=== PATIENT | female | born 1995 | race African-American/Black ===

== ENCOUNTER 2019-01-02 22:54 | Emergency (ER) | payer BC | END 2019-01-02 23:25 | disposition left against medical advice (07) | LOC: ER 22:54 | DX: R06.00 Dyspnea, unspecified (principal); Z53.21 Procedure and treatment not carried out due to patient leaving prior to being seen by health care provider ==

== ENCOUNTER 2023-12-01 08:08 | Emergency (ER) | payer BC, MEDICAID ==
[~2023-12-01] VITALS: Ht 154.9 cm; Wt 61.1 kg
[2023-12-01 08:51] LABS: Urine Bacteria None Seen /hpf (None Seen)
[2023-12-01 09:05] LABS: Urine Blood 3+ /uL (Negative); Urine Clarity Clear (Clear); Urine Color Yellow (Yellow); Urine Mucus FEW (None Seen); Urine Protein, UAD Negative (Negative); Urine Specific Gravity 1.023 (1.001-1.035); Urine Urobilinogen Normal (Negative); Urine WBC 1 /hpf (0 - 5); Urine pH 5.5 (5.0-9.0)
[2023-12-01 09:12] LABS: Basophils # (auto) 0 10 ^3/uL (0-0.2); Basophils % (auto) 0.2 % (0.0-2.0); Eosinophils # (auto) 0.1 10 ^3/uL (0-0.8); Eosinophils % (auto) 1.8 % (0.0-7.0); Hematocrit 36.3 % (36.0-46.0); Hemoglobin 12.4 g/dL (12.2-16.2); Lymphocytes # (auto) 1.2 10 ^3/uL (0.4-5.4); Lymphocytes % (auto) 29.2 % (10.0-50.0); Mean Corpuscular Hemoglobin 29.6 pg (28.0-32.0); Mean Corpuscular Hgb Conc. 34.3 g/dL (32.0-36.0); Mean Corpuscular Volume 86.2 fL (80.0-100.0); Monocytes # (auto) 0.3 10 ^3/uL (0-1.3); Monocytes % (auto) 8.3 % (0.0-12.0); Neutrophils # (auto) 2.5 10 ^3/uL (1.6-8.6); Neutrophils % (auto) 60.5 % (37.0-80.0); Red Blood Cells 4.21 10^6/uL (4.0-5.20); Red Cell Distribution Width 14.3 % (11.8-14.3); White Blood Cell 4.1 10^3/uL (4.4-10.8)
[2023-12-01 09:16] LABS: Alanine Aminotransferase 47 U/L (7-40); Albumin 4.7 g/dL (3.2-4.8); Alkaline Phosphatase 57 U/L (46-116); Anion Gap 6 (5-15); Aspartate Aminotransferase 25 U/L (13-40); BUN/Creatinine Ratio 10.6 (10.0-20.0); Blood Urea Nitrogen 9 mg/dL (9-23); Calcium 9.6 mg/dL (8.5-10.1); Carbon Dioxide 23 mmol/L (20-30); Chloride 107 mmol/L (98-107); Glucose 91 mg/dL (74-106); Potassium 3.8 mmol/L (3.5-5.1); Sodium 136 mmol/L (136-145)
[2023-12-01 09:17] LABS: Bilirubin, Total 0.4 mg/dL (0.2-1.0); Total Protein 7.2 g/dL (5.7-8.2)
[2023-12-01 12:00] VITALS: BP 116/58; PULSE 100; RESP 20; TEMP 98.4; O2SAT 100
== END 2023-12-01 12:02 | disposition home or self-care (01) ==
LOC: ER 08:08
DX: O20.0 Threatened abortion (principal); F12.10 Cannabis abuse, uncomplicated; Z3A.01 Less than 8 weeks gestation of pregnancy
CPT/HCPCS: 36415; 76801; 80053; 81001; 84702; 85025

== ENCOUNTER 2024-06-02 04:28 | Emergency (ER) | payer BC ==
[~2024-06-02] VITALS: Ht 152.4 cm; Wt 70.7 kg
--- NOTE | 2024-06-02 04:41 | ED.PDOC ---
History of Present Illness HPI Comments A 28 year old female presents to the ED with a chief complaint of fever onset 1 week. Patient states she has been experiencing fever, chills for the past week. Patient is currently 33 weeks , P:1. Patient denies any past medical history. No other symptoms or modifying factors present at this time. Chief Complaint: Flu like Time Seen by MD: 04:35 Primary Care Provider: CARMITA Bateman Notes: Medications, Allergies Allergies: Coded Allergies: NO KNOWN ALLERGIES (Unverified , 02/08/19) Information Source: Patient Mode of Arrival: Ambulatory Severity: Moderate Timing: Weeks Duration: Since onset Prehospital treatment: None Past Medical History PAST MEDICAL HISTORY: Denies Surgical History: Denies all surgeries PASTRY WRAPPER History: No Pertinent PASTRY WRAPPER History Family History Family History: Reviewed,noncontributory to illness, Family hx of HTN Social History Smoker: Non-Smoker Alcohol: Occasionally Drugs: Marijuana Lives In: Home Constitutional: reports: chills, fever; denies: diaphoresis, fatigue, malaise, sweats, weakness, others EENTM: denies: blurred vision, double vision, ear bleeding, ear discharge, ear drainage, ear pain, ear ringing, eye pain, eye redness, hearing loss, mouth pain, mouth swelling, nasal discharge, nose bleeding, nose congestion, nose pain, photophobia, tearing, throat pain, throat swelling, voice changes, others Respiratory: denies: cough, hemoptysis, orthopnea, SOB at rest, shortness of breath, SOB with excertion, stridor, wheezing, others Cardiovascular: denies: chest pain, dizzy spells, diaphoresis, Dyspnea on exertion, edema, irregular heart beat, left arm pain, lightheadedness, palpita tions, PND, syncope, others Gastrointestinal: denies: abdomen distended, abdominal pain, blood streaked manjinder wels, constipated, diarrhea, dysphagia, difficulty swallowing, hematemesis, melena, nausea, poor appetite, poor fluid intake, rectal bleeding, rectal pain, vomiting, others Genitourinary: denies: abnormal vagina bleeding, burning, dyspareunia, dysuria, flank pain, frequency, hematuria, incontinence, pain, , vagina discharge, urgency, others Neurological: denies: dizziness, fainting, headache, left sided numbness, left sided weakness, numbness, paresthesia, pre-existing deficit, right sided numbness, right sided weakness, seizure, speech problems, tingling, tremors, weakness, others Musculoskeletal: denies: back pain, gout, joint pain, joint swelling, muscle pain, muscle stiffness, neck pain, others Integumetry: denies: bruises, change in color, change in hair/nails, dryness, laceration, lesions, lumps, rash, wounds, others Allergic/Immunocompromised: denies: Difficulty Healing, Frequent Infections, Hives, Itching, others Hematologic/Lymphatic: denies: anemia, blood clots, easy bleeding, easy bruis ing, swollen glands, others Endocrine: denies: excessive hunger, excessive sweating, excessive thirst, exc essive urination, flushing, intolerance to cold, intolerance to heat, unexplained weight gain, unexplained weight loss, others Psychiatric: denies: anxiety, bipolar disorder, depression, hopeless, panic disorder, schizophrenia, sleepless, suicidal, others All Other Systems: Reviewed and Negative Physical Exam General Appearance: No Apparent Distress, Normal HEENT: Normal ENT Inspection, Pharynx Normal, TMs Normal Neck: Full Range of Motion, Non-Tender, Normal, Normal Inspection Respiratory: Chest Non-Tender, Lungs Clear, No Accessory Muscle Use, No Respiratory Distress, Normal Breath Sounds Cardiovascular: No Edema, No JVD, No Murmur, No Gallop, Normal Peripheral Pulses, Tachycardia Breast Exam: Deferred Gastrointestinal: No Organomegaly, Non Tender, No Pulsatile Mass, Normal Bowel Sounds, Soft Genitalia: Deferred Pelvic: Deferred Rectal: Deferred Extremities: No calf tenderness, Normal capillary refill, Normal inspection, Normal range of motion, Non-tender, No pedal edema Musculoskeletal : Apperance: Normal Neurologic: Alert, yarn winder II-XII nml as Tested, No Motor Deficits, Normal Affect, Normal Mood, No Sensory Deficits Cerebellar Function: Normal Reflexes: Normal Skin: Dry, Normal Color, Warm Lymphatic: No Adenopathy Was a procedure done? Was a procedure done?: No Differential Dx Considerations may include: Influenza, viral syndrome X-Ray, Labs, Meds, VS Vital Signs Date Time Temp Pulse Resp B/P (MAP) Pulse Ox O2 Delivery O2 Flow Rate FiO2 06/02/24 04:50 16 98 Room Air* 0 21 06/02/24 04:40 99.4 140 16 93/60 (71) 98 Lab Test 06/02/24 04:50 06/02/24 04:48 Range/Units White Blood Count 4.2 L 4.4-10.8 10^3/uL Red Blood Count 3.75 L 4.0-5.20 10^6/uL Hemoglobin 10.5 L 12.2-16.2 g/dL Hematocrit 32.2 L 36.0-46.0 % Mean Corpuscular Volume 85.8 80.0-100.0 fL Mean Corpuscular Hemoglobin 28.0 28.0-32.0 pg Mean Corpuscular Hemoglobin Concent 32.7 32.0-36.0 g/dL Red Cell Distribution Width 14.3 11.8-14.3 % Platelet Count 241 140-450 10^3/uL Mean Platelet Volume 7.9 6.9-10.8 fL Neutrophils (%) (Auto) 80.3 H 37.0-80.0 % Lymphocytes (%) (Auto) 9.1 L 10.0-50.0 % Monocytes (%) (Auto) 10.0 0.0-12.0 % Eosinophils (%) (Auto) 0.4 0.0-7.0 % Basophils (%) (Auto) 0.2 0.0-2.0 % Neutrophils # (Auto) 3.4 1.6-8.6 10 ^3/uL Lymphocytes # (Auto) 0.4 0.4-5.4 10 ^3/uL Monocytes # (Auto) 0.4 0-1.3 10 ^3/uL Eosinophils # (Auto) 0 0-0.8 10 ^3/uL Basophils # (Auto) 0 0-0.2 10 ^3/uL Nucleated Red Blood Cells 0.1 % Sodium Level 136 136-145 mmol/L Potassium Level 3.7 3.5-5.1 mmol/L Chloride Level 106 98-107 mmol/L Carbon Dioxide Level 19 L 20-31 mmol/L Anion Gap 11 5-15 Blood Urea Nitrogen 8 L 9-23 mg/dL Creatinine 0.93 0.550-1.02 mg/dL Glomerular Filtration Rate Calc 85 >90 mL/min BUN/Creatinine Ratio 8.6 L 10.0-20.0 Serum Glucose 97 74-106 mg/dL Calcium Level 8.9 8.7-10.4 mg/dL Influenza Type A Antigen Positive Negative Influenza Type B Antigen Negative Negative SARS-CoV-2 Antigen (Rapid) Negative NEGATIVE Current Medications Medications (Trade) Dose Ordered Sig/Penny Route Start Time Stop Time Status Last Admin Sodium Chloride 2,000 ml @ 1,000 mls/hr Q2H ONCE IV 06/02/24 04:45 06/02/24 06:44 06/02/24 04:53 Ondansetron HCl (Zofran) 4 mg ONCE ONCE IV 06/02/24 04:45 06/02/24 04:46 DC 06/02/24 05:20 Time of 1ST Reevaluation: 05:05 Reevaluation 1ST: Unchanged Patient Education/Counseling: Diagnosis, Treatment, Prognosis Family Education/Counseling: No Family Present Additional Information I reviewed the following notes from patient's past medical encounters: The following tests were ordered, and results were reviewed by me: COVID, RAPID INFLUENZA A&B, CBC, BMP I discussed treatment and results with medical personnel and: patient Departure 1 Departure Time of Disposition: 06:03 (Patient is flu a. Her vitals are normalizing after receiving fluids. We will discharge patient home with outpatient follow up ) Impression: Primary Impression: Influenza A Additional Impression: Viral syndrome Disposition: 01 HOME / SELF CARE / HOMELESS Condition: Stable Additional Instructions: You have influenza a. It is important to stay well rested and well hydrated. You can take Tylenol as needed for pain and fever. For a sore throat you can drink warm tea with honey. You were prescribed tamilfu. Please take as directed. He should follow up with your regular doctor within 1 week to ensure you are doing better. If your symptoms worsen or you have any other concerns please return to the emergency room. e-Prescriptions Oseltamivir Phosphate (Tamiflu) 75 Mg Cap 75 MG PO BID for 5 Days, #10 CAP Prov: CHARLES MALLOY MD 06/02/24 Discharged With: Self Critical Care Note Critical Care Time?: No Stability Stability form required: No I personally scribed for CHARLES MALLOY MD ([email or web address]) on 06/02/24 at 04:41. Electronically submitted by Gabrielle Emerson ([email or web address]). I personally scribed for CHARLES MALLOY MD ([email or web address]) on 06/02/24 at 04:42. Electronically submitted by Gabrielle Emerson ([email or web address]). CHARLES MALLOY MD Jun 02, 2024 04:41
[2024-06-02] MEDS: ACETAMINOPHEN 325 MG TAB PO ONE (04:45)
[2024-06-02] MEDS: ONDANSETRON HCL 4 MG/2 ML VIAL IV ONE (04:50)
[2024-06-02] MEDS: SODIUM CHLORIDE 0.9% 2,000 ML IV ONE (04:53)
[2024-06-02 05:03] LABS: Basophils # (auto) 0 10 ^3/uL (0-0.2); Basophils % (auto) 0.2 % (0.0-2.0); Eosinophils # (auto) 0 10 ^3/uL (0-0.8); Eosinophils % (auto) 0.4 % (0.0-7.0); Hematocrit 32.2 % (36.0-46.0); Hemoglobin 10.5 g/dL (12.2-16.2); Lymphocytes # (auto) 0.4 10 ^3/uL (0.4-5.4); Lymphocytes % (auto) 9.1 % (10.0-50.0); Mean Corpuscular Hgb Conc. 32.7 g/dL (32.0-36.0); Mean Corpuscular Volume 85.8 fL (80.0-100.0); Monocytes # (auto) 0.4 10 ^3/uL (0-1.3); Neutrophils # (auto) 3.4 10 ^3/uL (1.6-8.6); Neutrophils % (auto) 80.3 % (37.0-80.0); Nucleated Red Blood Cells % 0.1 %; Platelet Count (auto) 241 10^3/uL (140-450); Red Blood Cells 3.75 10^6/uL (4.0-5.20); Red Cell Distribution Width 14.3 % (11.8-14.3); White Blood Cell 4.2 10^3/uL (4.4-10.8)
[2024-06-02 05:12] LABS: Anion Gap 11 (5-15); Chloride 106 mmol/L (98-107); Potassium 3.7 mmol/L (3.5-5.1); Sodium 136 mmol/L (136-145)
[2024-06-02 05:13] LABS: Calcium 8.9 mg/dL (8.7-10.4)
[2024-06-02 05:18] VITALS: PULSE 133; RESP 26; TEMP 98.7; O2SAT 99
[2024-06-02 05:18] LABS: BUN/Creatinine Ratio 8.6 (10.0-20.0); Glucose 97 mg/dL (74-106)
[2024-06-02 05:30] LABS: Blood Urea Nitrogen 8 mg/dL (9-23); Carbon Dioxide 19 mmol/L (20-31)
[2024-06-02 05:34] LABS: COVID19 ANTIGEN SOFIA FIA NEGATIVE (NEGATIVE); Rapid Influenza B Negative (Negative)
[2024-06-02 05:36] LABS: Rapid Influenza A Positive (Negative)
[2024-06-02] MEDS: SODIUM CHLORIDE 0.9% 1,000 ML IV ONE (05:49)
[2024-06-02] MEDS ORDERED: TAMIFLU PO (06:05)
[2024-06-02 06:46] VITALS: BP 100/46; PULSE 130; RESP 20; O2SAT 98
[2024-06-03] MEDS ORDERED: METR-344 PO (01:32)
== END 2024-06-02 07:17 | disposition home or self-care (01) ==
LOC: ER 04:28
DX: O98.513 Other viral diseases complicating pregnancy, third trimester (principal); O99.513 Diseases of the respiratory system complicating pregnancy, third trimester; J10.1 Influenza due to other identified influenza virus with other respiratory manifestations; F12.10 Cannabis abuse, uncomplicated; Z3A.33 33 weeks gestation of pregnancy; Z20.822 Contact with and (suspected) exposure to COVID-19
CPT/HCPCS: 36415; 80048; 85025; 87426; 87804; 96361; 96374; 99283; J2405; J7030; 96360

== ENCOUNTER 2024-06-02 23:32 | Observation (INO) | payer BC ==
[~2024-06-02 23:32] MED LIST: TAMIFLU PO
[2024-06-03 01:06] LABS: Vaginal Bacteria Moderate; Vaginal Epithelial Cells Many; Vaginal Trichomonas Not Present
[2024-06-03 01:08] LABS: Fern Testing Negative; Vaginal Clue Cells Few
[2024-06-03] MEDS ORDERED: METR-344 PO (01:32)
--- NOTE | 2024-06-03 01:36 | DVH ---
OB ULTRASOUND, LIMITED CLINICAL INDICATION: LEAKING OF FLUID/POSSIBLE TRANSFER TO [facility] TECHNIQUE: Multiple grayscale ultrasound and M-mode images were obtained of the pelvis for evaluation of intrauterine . COMPARISON: US OB ULTRASOUND COMP LESS 14WKS on DOS: 12/01/23 FINDINGS: A single living fetus is seen in cephalic presentation. Biparietal diameter: 8.02 cm (32 weeks, 1 days) Head Circumference: 30.48 cm (33 weeks, 6 days) Abdomen Circumference: 29.75 cm (33 weeks, 5 days) Femur Length: 6.33 cm (32 weeks, 5 days) Estimated weight: 2169 grams (+/- 325 grams). 4 lb 12 oz Cervix is 1.7 cm and contains fluid. Placenta: Anterior. Amniotic fluid: Visibly normal. heart rate: 117 beats/min. A complete anatomic survey was not performed on this exam. IMPRESSION: 1. Single intrauterine with an estimated gestational age of 33 weeks, 1 days, correspondi ng to an estimated date of delivery of 07/21/2024. 2. Shortened cervix measuring 1.7 cm containing fluid.
--- NOTE | 2024-06-03 06:01 | DVH ---
Examination: BPP CLINICAL INDICATION: CAT 2 TRACING, VARIABLE COMPARISON: None. TECHNIQUE: Transabdominal ultrasound was performed. FINDINGS: movement- 2/2. tone- 2/2. breathing- 2/2. Amniotic fluid index- 2/2. BALBIR- 20.9 cm. FHR 144 BPM Presentation Cephalic. Placenta - Anterior. IMPRESSION: Biophysical profile- 01/13. No acute abnormalities. Electronically Signed 06/03/2024 06:01 Beatrice Bella
--- NOTE | 2024-06-03 11:15 | DVHDS2 ---
Physician Discharge Progress N Final Diagnosis: bacterial vaginosis short cervix Secondary Diagnosis: intact amniotic membranes Problems List: (1) Bacterial vaginosis in (2) 33 weeks gestation of (3) Short cervix during in third trimester Operations or Procedures: Operations or Procedures S: 28yo IUP@33.5wks presents to OB triage with c/o LOF. Pt reports being in the ED earlier and received IV fluids and tamiflu for +influenza. She has not drank a lot of water since. Denies UCs/VB/YANEZ/vision changes/RUQ pain. Endorses +FM. PNC with Dr. Garcia, uncomplicated. O: VSS UA wnl NST reactive for GA TOCO: uterine irritability noted SSE by RN: negative pooling and nitrazine Laboratory Tests Test 06/03/24 00:05 Range/Units Amniotic Fluid Ferning Test Negative Vaginal WBC (Wet Prep) Moderate Vaginal RBC (Wet Prep) None seen Vaginal Epithelial Cells (Wet Prep) Many Vaginal Bacteria (Wet Prep) Moderate Vaginal Trichomonas (Wet Prep) Not present Vaginal Yeast (Wet Prep) None seen Vaginal Clue Cells (Wet Prep) Few A: 28yo IUP@33.5wks BV short cervix intact amniotic membranes P: D/C home Rx sent for flagyl Pelvic rest ordered F/U on 06/06/[facility]/BPP and schedule appt with OB provider on 06/06/24 Dr. Atkinson consulted, agrees with POC. Other Interventions Other Interventions [place] [address] Ph: [phone] DIAGNOSTIC IMAGING Diagnostic Imaging Report : [id number] Signed PATIENT: NESHA JEWELL LACCT: [id number] UNIT: [id number] : 1995 LOC: [facility] ROOM / BED: TRIAGE3 / A AGE / SEX: 28 / F ADM STATUS: ADM IN SERVICE 0000 ORDERING PHYSICIAN: SIERRA GUTIERREZ CNM PROCEDURE(s): OBUS - OB ULTRASOUND COMP GTR 14 WKS REASON: LEAKING OF FLUID/POSSIBLE TRANSFER TO [facility] ORDER NUMBER(s): [id number], ACCESSION NUMBER(s): [id number] OB ULTRASOUND, LIMITED CLINICAL INDICATION: LEAKING OF FLUID/POSSIBLE TRANSFER TO [facility] TECHNIQUE: Multiple grayscale ultrasound and M-mode images were obtained of the pelvis for evaluation of intrauterine . COMPARISON: US OB ULTRASOUND COMP LESS 14WKS on DOS: 12/01/23 FINDINGS: A single living fetus is seen in cephalic presentation. Biparietal diameter: 8.02 cm (32 weeks, 1 days) Head Circumference: 30.48 cm (33 weeks, 6 days) Abdomen Circumference: 29.75 cm (33 weeks, 5 days) Femur Length: 6.33 cm (32 weeks, 5 days) Estimated weight: 2169 grams (+/- 325 grams). 4 lb 12 oz Cervix is 1.7 cm and contains fluid. Placenta: Anterior. Amniotic fluid: Visibly normal. heart rate: 117 beats/min. A complete anatomic survey was not performed on this exam. IMPRESSION: 1. Single intrauterine with an estimated gestational age of 33 weeks, 1 days, corresponding to an estimated date of delivery of 07/21/2024. 2. Shortened cervix measuring 1.7 cm containing fluid. ATED BY: RADHA PATEL MD DICTATED DATE/TIME: 06/03/24133 SIGNED BY: RADHA PATEL MD SIGNED DATE/TIME: 06/03/24133 CC: Consultations: Consultations [place] [address] Ph: [phone] DIAGNOSTIC IMAGING Diagnostic Imaging Report : [id number] Signed PATIENT: NESHA JEWELL LACCT: [id number] UNIT: [id number] : 1995 LOC: [facility] ROOM / BED: [facility] / A AGE / SEX: 28 / F ADM STATUS: DIS IN SERVICE 8 ORDERING PHYSICIAN: SIERRA GUTIERREZ CNM PROCEDURE(s): BPP - BIOPHYSICAL PROFILE REASON: CAT 2 TRACING, VARIABLE ORDER NUMBER(s): [id number], ACCESSION NUMBER(s): [id number] Examination: BPP CLINICAL INDICATION: CAT 2 TRACING, VARIABLE COMPARISON: None. TECHNIQUE: Transabdominal ultrasound was performed. FINDINGS: movement- 2/2. tone- 2/2. breathing- 2/2. Amniotic fluid index- 2/2. BALBIR- 20.9 cm. FHR 144 BPM Presentation Cephalic. Placenta - Anterior. IMPRESSION: Biophysical profile- 01/13. No acute abnormalities. Electronically Signed 06/03/2024 06:01 Beatrice Bella ATED BY: SHAYNE MAXWELL MD DICTATED DATE/TIME: 06/03/24600 SIGNED BY: SHAYNE MAXWELL MD SIGNED DATE/TIME: 06/03/24600 CC: Condition on Discharge: Stable Disposition: Home Discharge Instructions: Diet: Regular Activity: Light activity Activity comment: PELVIC REST, no heavy lifting Follow Up/Referral: FOLLOW UP WITH DR GARCIA OR Amanda IBRAHIM ON Thursday06/06/24, AND [facility]E [facility] AT 8AM FOR A CERVICAL LENGTH. Medications: CONTINUE TAKING ALL CURRENT MEDICATION PREVIOUSLY PRESCRIBED AND BEGIN TAKING FLAGYL. Follow Up Care: Specialist: F/U on 06/06/[address] [facility] for N[facility]/BPP and schedule appt with OB provider on 06/06/24 Discharge Statement: "Patient was advised to return to the ER or call 911 if any headaches, dizziness, shortness of breath, chest pain, abdominal pain, bleeding, fevers, or worsening of medical condition. Patient was counseled about treatment plan, medications, possible side effects, patientverbalized understanding. All questions were answered to the best of my ability. This discharge took greater then 30 minutes in planning, reviewing documentation, counseling the patient, and discussing with other team members." SIERRA GUTIERREZ CNM Jun 03, 2024 11:15
== END 2024-06-03 02:30 | disposition home or self-care (01) ==
LOC: LDRP 23:32
PROVIDERS: ADMIT Obstetrics & Gynecology; ATTEND Obstetrics & Gynecology
DX: O26.873 Cervical shortening, third trimester (principal); O23.593 Infection of other part of genital tract in pregnancy, third trimester; O41.93X0 Disorder of amniotic fluid and membranes, unspecified, third trimester, not applicable or unspecified; Z3A.33 33 weeks gestation of pregnancy; Z79.899 Other long term (current) drug therapy
CPT/HCPCS: 59025; 76805; 76817; 76818; 81002; 87210; 94760; G0378; Q0114

== ENCOUNTER 2024-06-06 08:00 | Observation (INO) | payer BC ==
[~2024-06-06 08:00] MED LIST changes: +METR-344 PO
--- NOTE | 2024-06-06 09:07 | DVH ---
LIMITED OB ULTRASOUND > 14 WKS: HISTORY: short cervix. Cervical length. TECHNIQUE: Multiple real-time grayscale images of the gravid uterus with duplex Doppler color flow an d M-mode spectral analysis. Transvaginal examination was performed. COMPARISON: Prior ultrasound dated 06/03/2024. FINDINGS: Single living intrauterine fetus in cephalic presentation with heart rate of 126 beats per ai te. Anterior placenta with no evidence of previa or abruption. measurements were not obtained. Amniotic fluid index is 14.3 cm. Cervical length measures 1.5 cm with prominent funneling. IMPRESSION: 1. Cervical length measures 1.5 cm with prominent funneling. 2. Additional findings as described above.
[2024-06-06] MEDS ORDERED: NIFE10CA52 PO (09:28)
[2024-06-06] MEDS ORDERED: PREN1TAB71 OR (09:28)
--- NOTE | 2024-06-07 07:27 | DVHDS2 ---
Physician Discharge Progress N Final Diagnosis: ptl ruled out Operations or Procedures: Operations or Procedures nst,sono Condition on Discharge: Good Disposition: Home Discharge Instructions: Diet: Regular Activity: No Restrictions, As Tolerated Medications: na Follow Up Care: Specialist: 3d Discharge Statement: "Patient was advised to return to the ER or call 911 if any headaches, dizziness, shortness of breath, chest pain, abdominal pain, bleeding, fevers, or worsening of medical condition. Patient was counseled about treatment plan, medications, possible side effects, patientverbalized understanding. All questions were answered to the best of my ability. This discharge took greater then 30 minutes in planning, reviewing documentation, counseling the patient, and discussing with other team members." SOHAIL CAN DO Jun 07, 2024 07:27
== END 2024-06-06 09:44 | disposition home or self-care (01) ==
LOC: UNDOADMOB 08:07 → LDRP 08:07 → UNDODISOB 09:44
PROVIDERS: ADMIT Obstetrics & Gynecology; ATTEND Obstetrics & Gynecology
DX: O26.873 Cervical shortening, third trimester (principal); Z98.890 Other specified postprocedural states; Z79.899 Other long term (current) drug therapy; Z3A.34 34 weeks gestation of pregnancy
CPT/HCPCS: 59025; 76815; 81002; 94760; G0378

== ENCOUNTER 2024-06-13 06:33 | Observation (INO) | payer BC ==
[~2024-06-13 06:33] MED LIST changes: +NIFE10CA52 PO; +PREN1TAB71 OR
--- NOTE | 2024-06-13 11:12 | DVH ---
BIOPHYSICAL PROFILE HISTORY: short cervix TECHNIQUE: Multiple transabdominal real-time grayscale sonographic images through the gravid uterus of the fetus with duplex Doppler color flow and M-mode spectral analysis FINDINGS: BIOPHYSICAL PROFILE: breathing score: 2 movement score: 2 tone score: 2 Quantitative BALBIR score: 2 (BALBIR: 10.5 Cm.) Total score: 8/8 The cervix measures 2.0 cm. There is funneling at the internal os of approximately 0.9 cm width. Single live fetus in cephalic presentation. heart rate 133 beats per minute. Anterior placenta without previa or abruption IMPRESSION: 1. Biophysical profile score: 8/8 2. Short cervix measuring 2.0 cm, and demonstrating funneling of the internal os. HS:Y
--- NOTE | 2024-06-13 14:42 | DVHDS2 ---
Physician Discharge Progress N Final Diagnosis: Threatened labor Operations or Procedures: Operations or Procedures NST/BPP/ BALBIR Condition on Discharge: Stable Disposition: Home Discharge Instructions: Diet: Regular Activity: No Restrictions, As Tolerated Follow Up/Referral: As scheduled or PRN Medications: N/A Follow Up Care: Discharge Statement: "Patient was advised to return to the ER or call 911 if any headaches, dizziness, shortness of breath, chest pain, abdominal pain, bleeding, fevers, or worsening of medical condition. Patient was counseled about treatment plan, medications, possible side effects, patientverbalized understanding. All questions were answered to the best of my ability. This discharge took greater then 30 minutes in planning, reviewing documentation, counseling the patient, and discussing with other team members." MATILDA GARCIA DO Jun 13, 2024 14:42
== END 2024-06-13 11:37 | disposition home or self-care (01) ==
LOC: LDRP 10:04
PROVIDERS: ADMIT Obstetrics & Gynecology; ATTEND Obstetrics & Gynecology
DX: O26.873 Cervical shortening, third trimester (principal); O47.03 False labor before 37 completed weeks of gestation, third trimester; O21.2 Late vomiting of pregnancy; Z98.890 Other specified postprocedural states; Z79.899 Other long term (current) drug therapy; Z3A.35 35 weeks gestation of pregnancy
CPT/HCPCS: 59025; 76818; 81002; 94760; G0378

== ENCOUNTER 2024-06-24 11:38 | Observation (INO) | payer BC, OTHER ==
--- NOTE | 2024-06-24 13:05 | DVH ---
Procedure: US BIOPHYSICAL PROFILE 06/24/2024 11:52 AM Indication: Decreased movement Comparison: US BIOPHYSICAL PROFILE on DOS: 06/13/24, US BIOPHYSICAL PROFILE on DOS: 06/03/24 Technique: Sonogram of gravid uterus utilizing grayscale and color techniques. FINDINGS: Single living intrauterine gestation. Presentation: Cephalic Placenta: Anterior, grade 3 heart rate: 140 bpm BALBIR: 12.8 cm, DVP: 3 cm Maternal cervix: Not visualized Biophysical Profile: breathing score: 2 movement score: 0 tone: 0 Quantitative BALBIR score: 2 Total score: 8/8 IMPRESSION: 1. Single living as above. 2. Biophysical profile score: 4/8. The nurse in charge of the patient, Anjel was notified of findings at 12:35 p.m. By the ultrasound te chnologist upon completion of the exam.
--- NOTE | 2024-06-24 14:01 | DVHDS2 ---
Physician Discharge Progress N Final Diagnosis: decreaesd movement resolved Operations or Procedures: Operations or Procedures nst,sono Condition on Discharge: Good Disposition: Home Discharge Instructions: Activity: No Restrictions, As Tolerated Medications: na Follow Up Care: Specialist: 3d Discharge Statement: "Patient was advised to return to the ER or call 911 if any headaches, dizzin ess, shortness of breath, chest pain, abdominal pain, bleeding, fevers, or worsening of medical condition. Patient was counseled about treatment plan, medications, possible side effects, patientverbalized understanding. All questions were answered to the best of my ability. This discharge took greater then 30 minutes in planning, reviewing documentation, counseling the patient, and discussing with other team members." SOHAIL CAN DO Jun 24, 2024 14:01
--- NOTE | 2024-06-24 14:12 | DVH ---
Procedure: US BIOPHYSICAL PROFILE 06/24/2024 01:39 PM Indication: Decreased movement Comparison: US BIOPHYSICAL PROFILE on DOS: 06/24/24, US BIOPHYSICAL PROFILE on DOS: 06/13/24, US BIOPHYS ICAL PROFILE on DOS: 06/03/24 Technique: Sonogram of gravid uterus utilizing grayscale and color techniques. FINDINGS: Single living intrauterine gestation. Presentation: Cephalic Placenta: Anterior, no previa heart rate: 138 bpm BALBIR: 10.7 cm, DVP: 3.3 cm Maternal cervix: Not visualized Biophysical Profile: breathing score: 2 movement score: 2 tone: 2 Quantitative BALBIR score: 2 Total score: 8/8 IMPRESSION: 1. Biophysical profile score: 8/8. Improved movement and tone compared to prior exam performed earlier today.
[2024-06-24 14:21] LABS: Basophils # (auto) 0 10 ^3/uL (0-0.2); Basophils % (auto) 0.2 % (0.0-2.0); Eosinophils # (auto) 0.1 10 ^3/uL (0-0.8); Eosinophils % (auto) 1.3 % (0.0-7.0); Hemoglobin 10.3 g/dL (12.2-16.2); Lymphocytes # (auto) 1.1 10 ^3/uL (0.4-5.4); Lymphocytes % (auto) 23.1 % (10.0-50.0); Mean Corpuscular Hemoglobin 27.8 pg (28.0-32.0); Mean Corpuscular Hgb Conc. 33.4 g/dL (32.0-36.0); Mean Corpuscular Volume 83.2 fL (80.0-100.0); Monocytes # (auto) 0.4 10 ^3/uL (0-1.3); Monocytes % (auto) 8.7 % (0.0-12.0); Neutrophils # (auto) 3.2 10 ^3/uL (1.6-8.6); Neutrophils % (auto) 66.7 % (37.0-80.0); Nucleated Red Blood Cells % 0.1 %; Platelet Count (auto) 257 10^3/uL (140-450); Red Blood Cells 3.72 10^6/uL (4.0-5.20); Red Cell Distribution Width 14.7 % (11.8-14.3); White Blood Cell 4.8 10^3/uL (4.4-10.8)
[2024-06-24 14:33] LABS: Albumin 4.1 g/dL (3.2-4.8); Anion Gap 7 (5-15); Aspartate Aminotransferase 14 U/L (13-40); BUN/Creatinine Ratio 8.5 (10.0-20.0); Calcium 9.7 mg/dL (8.7-10.4); Carbon Dioxide 23 mmol/L (20-31); Chloride 106 mmol/L (98-107); Potassium 3.8 mmol/L (3.5-5.1); Sodium 136 mmol/L (136-145)
[2024-06-24 14:34] LABS: Bilirubin, Total 0.3 mg/dL (0.2-1.0); Total Protein 6.3 g/dL (5.7-8.2)
[2024-06-24 14:35] LABS: Alanine Aminotransferase 9 U/L (7-40); Alkaline Phosphatase 140 U/L (46-116); Blood Urea Nitrogen 7 mg/dL (9-23); Glucose 108 mg/dL (74-106); INR 0.91 (0.9-1.15); Partial Thromboplastin Time 27.3 SEC (24.5-34.5); Prothrombin Time 9.7 sec (9.3-11.8)
[2024-06-24] MEDS: LACTATED RINGER'S 1,000 ML IV ONE (14:58)
[2024-06-24 15:35] LABS: Urine Bacteria FEW /hpf (None Seen); Urine Blood Negative /uL (Negative); Urine Clarity Clear (Clear); Urine Color Yellow (Yellow); Urine Mucus FEW (None Seen); Urine Protein, UAD TRACE (Negative); Urine Squamous Epithelial Cell FEW /hpf (<5); Urine Urobilinogen Normal (Negative); Urine WBC 1 /hpf (0 - 5); Urine pH 6.5 (5.0-9.0)
[2024-06-24 15:38] LABS: Opiate Scree,Urine Neg (NEGATIVE)
[2024-06-24 15:40] LABS: Amphetamine Screen, Urine Neg (NEGATIVE); Barbiturate Scree,Urine Neg (NEGATIVE); Benzodiazephine Screen, Urine Neg (NEGATIVE); Cannabinoid Screen, Urine Neg (NEGATIVE); Cocaine Screen, Urine Neg (NEGATIVE); Phencyclidine Screen, Urine Neg (NEGATIVE)
== END 2024-06-24 14:22 | disposition home or self-care (01) ==
LOC: LDRP 11:38
PROVIDERS: ADMIT Obstetrics & Gynecology; ATTEND Obstetrics & Gynecology
DX: O36.8130 Decreased fetal movements, third trimester, not applicable or unspecified (principal); Z3A.36 36 weeks gestation of pregnancy; Z79.899 Other long term (current) drug therapy; Z86.2 Personal history of diseases of the blood and blood-forming organs and certain disorders involving the immune mechanism
CPT/HCPCS: 36415; 59025; 76818; 80053; 80307; 81001; 81002; 85025; 85610; 85730; 86592; 86780; 86850; 86900; 86901; 94760; 96360; 96361; G0378

== ENCOUNTER 2024-06-27 06:13 | Observation (INO) | payer BC, OTHER ==
--- NOTE | 2024-06-27 12:00 | DVH ---
BIOPHYSICAL PROFILE HISTORY: Decrease Movement TECHNIQUE: Multiple transabdominal real-time grayscale sonographic images through the gravid uterus of the fetus with duplex Doppler color flow and M-mode spectral analysis FINDINGS: BIOPHYSICAL PROFILE: breathing score: 2 movement score: 2 tone score: 2 Quantitative BALBIR score: 2 (BALBIR: 11.1 Cm.) Total score: 8 The cervix not well visualized. Single live fetus in cephalic presentation. heart rate 122 beats per minute. Anterior placenta without previa or abruption IMPRESSION: Biophysical profile score: 8
--- NOTE | 2024-06-27 12:23 | DVHDS2 ---
Physician Discharge Progress N Final Diagnosis: Decreased movements Secondary Diagnosis: Encounter for surveillance Operations or Procedures: Operations or Procedures NST/BPP/BALBIR all WNL Condition on Discharge: Stable Disposition: Home Discharge Instructions: Diet: Regular Activity: No Restrictions, As Tolerated Follow Up/Referral: as scheduled Medications: N/A Follow Up Care: Discharge Statement: "Patient was advised to return to the ER or call 911 if any headaches, dizziness, shortness of breath, chest pain, abdominal pain, bleeding, fevers, or worsening of medical condition. Patient was counseled about treatment plan, medications, possible side effects, patientverbalized understanding. All questions were answered to the best of my ability. This discharge took greater then 30 minutes in planning, reviewing documentation, counseling the patient, and discussing with other team members." MATILDA GARCIA DO Jun 27, 2024 12:23
== END 2024-06-27 12:18 | disposition home or self-care (01) ==
LOC: LDRP 10:59
PROVIDERS: ADMIT Obstetrics & Gynecology; ATTEND Obstetrics & Gynecology
DX: O36.8130 Decreased fetal movements, third trimester, not applicable or unspecified (principal); Z98.890 Other specified postprocedural states; Z79.899 Other long term (current) drug therapy; Z3A.37 37 weeks gestation of pregnancy
CPT/HCPCS: 59025; 76818; 81002; 94760; G0378

== ENCOUNTER 2024-06-29 20:18 | Inpatient (IN) | payer BC, OTHER ==
[~2024-06-29] VITALS: Ht 152.4 cm; Wt 72.6 kg
[2024-06-29 21:20] LABS: Urine Bacteria None Seen /hpf (None Seen)
[2024-06-29 21:36] LABS: Urine Blood Negative /uL (Negative); Urine Clarity Clear (Clear); Urine Color Light-Yellow (Yellow); Urine Mucus FEW (None Seen); Urine Protein, UAD Negative (Negative); Urine Specific Gravity 1.014 (1.001-1.035); Urine Squamous Epithelial Cell FEW /hpf (<5); Urine Urobilinogen Normal (Negative); Urine WBC 1 /HPF (0-5)
[2024-06-29] MEDS ORDERED: LACTATED RINGER'S 1,000 ML IV ONE (22:00)
[2024-06-29] MEDS: LACTATED RINGER'S 1,000 ML IV ONE (22:11)
--- NOTE | 2024-06-29 22:13 | DVH ---
BIOPHYSICAL PROFILE HISTORY: Non-reassuring FHT TECHNIQUE: Multiple transabdominal real-time grayscale sonographic images through the gravid uterus of the fetus with duplex Doppler color flow and M-mode spectral analysis FINDINGS: BIOPHYSICAL PROFILE: breathing score: 2 movement score: 2 tone score: 2 Quantitative BALBIR score: 2 (BALBIR: 7.7 Cm.) Total score: 8/8 The cervix obscured by head Single live fetus in cephalic presentation. heart rate 118- 157 beats per minute. Grade anterior placenta without previa or abruption Single live fetus at 37 weeks 4 days Biophysical profile score 8/8 corresponding to an LEE of 07/16/2024 IMPRESSION: 1. Biophysical profile score: 8/8 2. FHR: 118- 157
[2024-06-29] MEDS: TERBUTALINE SULFATE 1 MG/ML 1ML VIAL SC SCH (22:17)
[2024-06-29 22:23] LABS: Basophils # (auto) 0 10 ^3/uL (0-0.2); Basophils % (auto) 0.1 % (0.0-2.0); Eosinophils # (auto) 0.1 10 ^3/uL (0-0.8); Eosinophils % (auto) 1.2 % (0.0-7.0); Hemoglobin 10.4 g/dL (12.2-16.2); Lymphocytes # (auto) 1.3 10 ^3/uL (0.4-5.4); Lymphocytes % (auto) 22.2 % (10.0-50.0); Mean Corpuscular Hemoglobin 27.8 pg (28.0-32.0); Mean Corpuscular Hgb Conc. 33.5 g/dL (32.0-36.0); Monocytes # (auto) 0.6 10 ^3/uL (0-1.3); Monocytes % (auto) 9.6 % (0.0-12.0); Neutrophils % (auto) 66.9 % (37.0-80.0); Platelet Count (auto) 251 10^3/uL (140-450); Red Blood Cells 3.74 10^6/uL (4.0-5.20); Red Cell Distribution Width 15.1 % (11.8-14.3); White Blood Cell 5.9 10^3/uL (4.4-10.8)
[2024-06-29] MEDS: LACTATED RINGER'S 1,000 ML IV SCH (22:36)
[2024-06-29 22:37] LABS: Alanine Aminotransferase 12 U/L (7-40); Albumin 4.3 g/dL (3.2-4.8); Anion Gap 6 (5-15); BUN/Creatinine Ratio 6.7 (10.0-20.0); Bilirubin, Total 0.3 mg/dL (0.2-1.0); Calcium 9.9 mg/dL (8.7-10.4); Carbon Dioxide 23 mmol/L (20-31); Chloride 107 mmol/L (98-107); Glucose 97 mg/dL (74-106); Potassium 4.2 mmol/L (3.5-5.1); Sodium 136 mmol/L (136-145); Total Protein 6.6 g/dL (5.7-8.2)
[2024-06-29 22:52] LABS: INR 0.91 (0.9-1.15); Partial Thromboplastin Time 25.9 SEC (24.5-34.5); Prothrombin Time 9.7 sec (9.3-11.8)
[2024-06-29 23:11] LABS: Alkaline Phosphatase 148 U/L (46-116); Aspartate Aminotransferase 12 U/L (13-40); Blood Urea Nitrogen 6 mg/dL (9-23)
[2024-06-29] MEDS: NIFEdipine 10 MG CAP PO ONE (23:11)
[2024-06-30] VITALS (13 sets, daily range): BP systolic 97–126; BP diastolic 52–68; PULSE 74–98; RESP 11–18; TEMP 97.9–98.2; O2SAT 100
--- NOTE | 2024-06-30 00:28 | DVHDS2 ---
Physician Discharge Progress N Follow Up Care: Discharge Statement: "Patient was advised to return to the ER or call 911 if any headaches, dizziness, shortness of breath, chest pain, abdominal pain, bleeding, fevers, or worsening of medical condition. Patient was counseled about treatment plan, medications, possible side effects, patientverbalized understanding. All questions were answered to the best of my ability. This discharge took greater then 30 minutes in planning, reviewing documentation, counseling the patient, and discussing with other team members." SIERRA GUTIERREZ CNM Jun 30, 2024 00:28
[2024-06-30 01:57] LABS: Amphetamine Screen, Urine Neg (NEGATIVE); Barbiturate Scree,Urine Neg (NEGATIVE); Benzodiazephine Screen, Urine Neg (NEGATIVE); Cannabinoid Screen, Urine Neg (NEGATIVE); Cocaine Screen, Urine Neg (NEGATIVE); Opiate Scree,Urine Neg (NEGATIVE); Phencyclidine Screen, Urine Neg (NEGATIVE)
[2024-06-30] MEDS: NIFEdipine 10 MG CAP PO SCH (02:55)
[2024-06-30] MEDS: diphenhdrAMINE HCL 50 MG/1 ML VL IV ONE (03:28)
[2024-06-30] MEDS ORDERED: oxyTOCIN 10 UNIT/ML 10ML VIAL ONE (08:06)
[2024-06-30] MEDS ORDERED: MORPHINE SULF PF 5 MG/10 ML VIAL ONE (08:06)
[2024-06-30] MEDS: ceFAZolin 2 GM/D5W50ml 50 ML IV ONE (08:42)
[2024-06-30] MEDS ORDERED: ePHEDrine SULFATE 50 MG/ML AMP ONE (09:16)
[2024-06-30] MEDS ORDERED: ONDANSETRON HCL 4 MG/2 ML VIAL ONE (09:20)
[2024-06-30] MEDS ORDERED: PHENYLEPHRINE HCL 10 MG/ML VL ONE (09:22)
[2024-06-30] MEDS ORDERED: MIDAZOLAM HCL 2MG/2ML 2ml VIAL (1mg/ml) ONE (09:46)
[2024-06-30] MEDS ORDERED: NALOXONE HCL 0.4 MG/ML VIAL IV PRN (10:30)
[2024-06-30] MEDS ORDERED: ONDANSETRON HCL 4 MG/2 ML VIAL IV PRN ×2 (10:30→12:45)
[2024-06-30] MEDS ORDERED: HYDROmorphone HCL 2 MG/ML VL/or syr IV PRN ×2 (10:30)
[2024-06-30] MEDS ORDERED: DexAMETHasone SOD PHOS 10MG/1ML VIAL INJ IV PRN (10:30)
[2024-06-30] MEDS ORDERED: ACETAMINOPHEN IV 1000 MG/100ML (10MG/ML) IV PRN (10:30)
[2024-06-30] MEDS ORDERED: MEPERIDINE HCL (25 MG/ML) 1ML VIAL IV PRN (10:30)
[2024-06-30] MEDS ORDERED: KETOROLAC TROMETH 30 MG/ML 1ML VIAL IV PRN (10:30)
--- NOTE | 2024-06-30 10:42 | DVHOP ---
DATE OF SURGERY: 06/30/2024 PREOPERATIVE DIAGNOSES: * Early term , 37 weeks and 5 days, in early labor. * Previous section, desires repeat. * Intermittent variable decelerations (category 2 heart rate pattern). * Borderline oligohydramnios, BALBIR of 7. FINAL DIAGNOSES: * Early term , 37 weeks and 5 days, in early labor. * Previous section, desires repeat. * Intermittent variable decelerations (category 2 heart rate pattern). * Borderline oligohydramnios, BALBIR of 7. PROCEDURE PERFORMED: Repeat low transverse section via Pfannenstiel skin incision. SURGEON: Kris Briggs DO. LIABILITY CLAIMS REPRESENTATIVE: orthotic and prosthetic technician. TYPE OF ANESTHESIA: Spinal. ANESTHESIOLOGIST: Markel Roberts DO. DESCRIPTION OF FINDINGS: Delivery of a liveborn female , cephalic presentation, clear amniotic fluid, scores of 8 and 9. Bilateral theca Lutein ovarian cysts, bilateral fallopian tubes normal. Normal uterus and placenta. Two layer uterine closure. TECHNICAL PROCEDURE: After informed consent was obtained, the patient was taken to the operating room where her spinal anesthesia was found to be adequate. She was placed in a supine position with a slight leftward tilt. She was sterilely prepped and draped in the usual sterile fashion. A Pfannenstiel skin incision was made through the prior scar. The scar was developed sharply to the underlying layer of fascia. The fascia was incised in the midline and the incision extended laterally in a sharp fashion. The rectus muscles were dissected off the rectus fascia and entry into the peritoneal cavity was performed bluntly. The peritoneal incision was extended superiorly and inferiorly with good visualization of the bladder. The incision was stretched digitally and the Juan Manuel O retractor was then placed into the incision. The lower uterine segment was identified and incised in a low transverse fashion with the second scalpel. The uterine incision was extended laterally with bandage scissors. The amniotic fluid membranes were ruptured. The fluid was clear. The baby was in the cephalic presentation. The baby was delivered atraumatically. Following the delivery of the baby, the nose and mouth were suctioned. The cord was clamped and cut after 60 seconds and the baby handed off to waiting pediatric team. Cord blood was obtained. The placenta was then spontaneously delivered. The uterus was exteriorized and cleared of all clots and debris using moist laparotomy sponges. The uterine incision was repaired with #1 PDS in continuous running locking fashion in two layers. Excellent tissue approximation and hemostasis was obtained. The uterus was returned to the abdomen. The pericolic gutters were cleared of all clots and debris. The abdomen was irrigated with sterile water. Hemostasis was confirmed. All instrumentation was removed from the patient's abdomen. I then proceeded to close the rectus fascia using #1 PDS Stratafix suture. The incision was closed in continuous running fashion with excellent tissue approximation. The suture was cut. Next, the subcutaneous tissue was undermined with the electrocautery. The subcutaneous tissue was irrigated and bleeding points controlled with cautery. The subcutaneous tissue was closed with 2-0 plain gut. The skin was then closed in subcuticular fashion using 2-0 Monocryl. A thin layer of Dermabond was then placed over the incision. The patient tolerated the procedure well. Sponge, lap and needle counts were correct x 4. INTRAOPERATIVE COMPLICATIONS: None. ESTIMATED BLOOD LOSS: 600 mL. POSTOPERATIVE CONDITION: Stable. SPECIMENS: Cord blood and placenta. MEDICATIONS: The patient received 2 grams of Ancef prior to skin incision and IV Pitocin after cord clamp. Kris Briggs DO CG/ARV TID: [id number] RECEIPT: [id number]
[2024-06-30] MEDS: NALBUPHINE HCL 10 MG/1ml INJECTION SUBCUT ONE (11:25)
[2024-06-30] MEDS: ONDANSETRON HCL 4 MG/2 ML VIAL IV ONE (11:25)
--- NOTE | 2024-06-30 11:44 | DVHHP2 ---
OB CC & HPI Date Date of Admission: Jun 29, 2024 Patient Identification: : 2 Para: 1 EDC: Jul 16, 2024 EGA: 37.4wks Chief Complaints: Reason for admission: other (early labor) Indication for : desires repeat History of Present Complaints 28yo IUP@37.4wks presents in early labor. Pt reports irregular UCs since yesterday but got stronger today at 1700, pain radiates from lower abdomen to lower back. Denies LOF/VB/YANEZ/vision changes/RUQ pain. Endorses +FM. PNC: Routine PNC at [facility] OB with Dr. Briggs, adequate visits, PNC complicated by PTL, short cervix, and BV. GTT wnl, dating based on LMP c/w 7wk sono, GBS not done. Past Medical History Cardiac: Other (heart surgery as a child, does not remember diagnosis, currently wearing a heart monitor the animal anatomy teacher gave her) Pulmonary: No pertinent Hx Central Nervous System: No pertinent Hx GI: No pertinent Hx Hemotology/Oncology: No pertinent Hx Hepatobiliary: No pertinent Hx Psychiatric: No pertinent Hx Musculoskeletal: No pertinent Hx Rheumotologic: No pertinent Hx Infectious Disease: No peritnent Hx ENT: No pertinent Hx Renal/: No pertinent Hx Endocrine: No pertinent Hx Dermatology: No pertinent Hx Past Surgical History: OB History OB History Care: Good Care Ultrasounds: Normal mid trimester US Obstetrical Complications: None Medical Complications: None Allergies: Coded Allergies: NO KNOWN ALLERGIES (Unverified , 02/08/19) Allergies NKDA Home Meds Reported Medications Vit W/ Ferrous Fumara (PNV PLUS MULTIVI) Plus Tab, 1 OR, TAB 06/06/24 Discontinued Reported Medications Nifedipine (PROCARDIA CAPSULE) 10 Mg Cp, 10 MG PO, CAP 06/06/24 Discontinued Scripts Metronidazole (Flagyl) 500 Mg Tab, 1 TAB PO BID for 7 Days, #14 TAB Prov:SIERRA GUTIERREZ CNM 06/03/24 Oseltamivir Phosphate (Tamiflu) 75 Mg Cap, 75 MG PO BID for 5 Days, #10 CAP Prov:CHARLES MALLOY MD 06/02/24 Current Medications Current Medications Medications (Trade) Dose Ordered Sig/Penny Route PRN Reason Start Time Stop Time Status Last Admin Terbutaline Sulfate (Brethine Inj) 0.25 mg Q20M SC 06/29/24 21:45 06/29/24 22:26 DC 06/29/24 22:42 Lactated Ringer's 1,000 ml @ 125 mls/hr Q8H IV 06/29/24 22:15 06/30/24 08:42 Nifedipine (Procardia Capsule) 10 mg Q4HR PO 06/30/24 03:00 06/30/24 02:55 Diphenhydramine HCl (Benadryl Injection) 25 mg Q4HP PRN IV FOR ITCHING 06/30/24 10:30 Ondansetron HCl (Zofran) 4 mg Q4HP PRN IV NAUSEA / VOMITING 06/30/24 10:30 Naloxone HCl (Narcan) 0.2 mg Q5M PRN IV For respirations < than 10/min 06/30/24 10:30 06/30/24 10:36 DC Hydromorphone HCl (Dilaudid Injection) 0.5 mg Q15M PRN IV SEVERE PAIN (7-10 PAIN SCALE) 06/30/24 10:30 06/30/24 11:01 DC Dexamethasone Sodium Phosphate (Decadron Injection) 10 mg TEA PLANTATION WORKER PRN IV FOR ITCHING 06/30/24 10:30 06/30/24 10:31 DC Ketorolac Tromethamine (Toradol Injection) 30 mg Q6HP PRN IV MODERATE PAIN (4-6 PAIN SCALE) 06/30/24 10:30 07/05/24 10:29 Acetaminophen (Ofirmev) 1,000 mg [id number] PRN IV PAIN SCALE 1-3 OR TEMP>100.4 06/30/24 10:30 06/30/24 10:31 DC Hydromorphone HCl (Dilaudid Injection) 0.5 mg Q10M PRN IV SEVERE PAIN (7-10 PAIN SCALE) 06/30/24 10:30 06/30/24 11:11 DC Meperidine HCl (Demerol Injection) 25 mg Q10M PRN IV MODERATE PAIN (4-6 PAIN SCALE) 06/30/24 10:30 06/30/24 11:01 DC Family & Social History Family/Social History Past Family/Social History: denies Blood Type: O+ Rubella: not immune RPR/VDRL: Negative GBS Status: Unknown HBsAG: Negative Review of Systems Constitutional: No symptom reported Ears, Nose, & Throat: No symptom reported Eyes: No symptom reported Pulmonary/Respiratory: No symptom reported Cardiovascular: No symptom reported Gastrointestinal: No symptom reported Genitourinary: No symptom reported Musculoskeletal: No symptom reported Skin: No symptom reported Psychiatric: No symptom reported Endocrine: No symptom reported Hemotologic/Lymphatic: No symptom reported OB Admission Exam Physical Exam Vitals: VSS, see chart [place] [id number] Ph: [phone] DIAGNOSTIC IMAGING Diagnostic Imaging Report : [id number] Signed PATIENT: NESHA JEWELL LACCT: [id number] UNIT: [id number] : 1995 LOC: [facility] ROOM / BED: [address] AGE / SEX: 28 / F ADM STATUS: ADM IN SERVICE 24 ORDERING PHYSICIAN: SIERRA GUTIERREZ CNM PROCEDURE(s): BPP - BIOPHYSICAL PROFILE REASON: Non-reassuring FHT ORDER NUMBER(s): [id number], ACCESSION NUMBER(s): [id number] BIOPHYSICAL PROFILE HISTORY: Non-reassuring FHT TECHNIQUE: Multiple transabdominal real-time grayscale sonographic images through the gravid uterus of the fetus with duplex Doppler color flow and M-mode spectral analysis FINDINGS: BIOPHYSICAL PROFILE: breathing score: 2 movement score: 2 tone score: 2 Quantitative BALBIR score: 2 (BALBIR: 7.7 Cm.) Total score: 8/8 The cervix obscured by head Single live fetus in cephalic presentation. heart rate 118- 157 beats per minute. Grade anterior placenta without previa or abruption Single live fetus at 37 weeks 4 days Biophysical profile score 8/8 corresponding to an LEE of 07/16/2024 IMPRESSION: 1. Biophysical profile score: 8/8 2. FHR: 118- 157 ATED BY: NELIDA VIRK Jr., DO DICTATED DATE/TIME: 06/29/242209 SIGNED BY: NELIDA VIRK Jr., DO SIGNED DATE/TIME: 06/29/24 2210 CC: HEENT: TMs Normal, Fontanelles Normal, Nasal Mucosa Normal, Eyes non-injected, Oropharynx Normal, PERRLA, Moist Membranes, EOMI Heart: Rhythm Normal Lungs: Clear Abdomen: Gravid Extremities: Normal Reflexes: Normal Pelvic Exam: SVE: 1.5/60/-2, vertex Membranes: Intact Heart Rate: 130's Accelerations: Accelerations Present Decelerations: Variable Decelerations Time Clock Mechanic Variability: Average (6-25) Frequency of Contractions: q4-7 min Duration: 60-100 seconds Intensity: Moderate OB Plan Plan Admitting Diagnosis: Repeat Plan: Section Other Plan: Admit to L&D Pre-op labs ordered 1L LR IV fluid bolus then IV maintenance ordered Continuous EFM Dr. Atkinson consulted, ordered terbutaline SQ and procardia PO. Repeat C/S scheduled for 06/30/[address] Briggs will consent pt prior to R C/S. SIERRA GUTIERREZ CNM Jun 30, 2024 11:44
[2024-06-30] MEDS: TERBUTALINE SULFATE 1 MG/ML 1ML VIAL SC ONE (12:15)
[2024-06-30] MEDS ORDERED: MORPHINE SULFATE 4 MG/ML SYR/VIAL IV PRN (12:45)
[2024-06-30] MEDS ORDERED: ePHEDrine SULFATE 50 MG/ML AMP IV PRN (12:45)
[2024-06-30] MEDS ORDERED: IBUP1TAB5 PO (12:48)
[2024-06-30] MEDS ORDERED: HYDR-4902 PO (12:48)
[2024-06-30] MEDS: ceFAZolin 1GM/50ML 50 ML IV SCH (16:31)
[2024-06-30] MEDS: ACETAMINOPHEN IV 1000 MG/100ML (10MG/ML) IV PRN (17:00)
--- NOTE | 2024-06-30 22:31 | DVHHP2 ---
Adm. Physical Exam Sex Sex female Type of delivery/ Score [place] score score at 1 min = score at 5 min= scor e at 10 min= MS/Skin Remarks: In error documentation DIMPLE GUAMAN MD Jun 30, 2024 22:31
[2024-07-01] VITALS (13 sets, daily range): BP systolic 99–132; BP diastolic 53–78; PULSE 62–103; RESP 15–18; TEMP 97.8–98.6; O2SAT 97–100
[2024-07-01] MEDS: diphenhdrAMINE HCL 50 MG/1 ML VL IV PRN (01:32)
[2024-07-01 04:25] LABS: Basophils # (auto) 0 10 ^3/uL (0-0.2); Basophils % (auto) 0.3 % (0.0-2.0); Eosinophils # (auto) 0 10 ^3/uL (0-0.8); Eosinophils % (auto) 0.6 % (0.0-7.0); Hematocrit 32.2 % (36.0-46.0); Hemoglobin 10.6 g/dL (12.2-16.2); Lymphocytes % (auto) 13.8 % (10.0-50.0); Mean Corpuscular Hemoglobin 27.3 pg (28.0-32.0); Mean Corpuscular Hgb Conc. 32.9 g/dL (32.0-36.0); Mean Corpuscular Volume 83.2 fL (80.0-100.0); Monocytes # (auto) 0.6 10 ^3/uL (0-1.3); Neutrophils # (auto) 5.7 10 ^3/uL (1.6-8.6); Neutrophils % (auto) 77.3 % (37.0-80.0); Platelet Count (auto) 246 10^3/uL (140-450); Red Blood Cells 3.87 10^6/uL (4.0-5.20); Red Cell Distribution Width 15.1 % (11.8-14.3); White Blood Cell 7.4 10^3/uL (4.4-10.8)
--- NOTE | 2024-07-01 07:19 | DVHPN2 ---
Chief Complaints Patient reports: No new complaints Nursing reports: No new complaints Objective Vitals Vital Signs Date Time Temp Pulse Resp B/P (MAP) Pulse Ox O2 Delivery O2 Flow Rate FiO2 07/01/24 06:41 98.1 93 16 117/56 (76) 100 98.1 07/01/24 06:41 Room Air 06/30/24 10:14 0 Medications Current Medications Medications (Trade) Dose Ordered Sig/Penny Route PRN Reason Start Time Stop Time Status Last Admin Acetaminophen (Ofirmev) 1,000 mg Q8HPRN PRN IV MODERATE PAIN (4-6 PAIN SCALE) 06/30/24 12:45 07/01/24 12:44 07/01/24 01:06 Cefazolin Sodium 50 ml @ 100 mls/hr Q8H IV 06/30/24 16:45 07/01/24 09:14 07/01/24 00:27 Diphenhydramine HCl (Benadryl Injection) 25 mg Q4HP PRN IV FOR ITCHING 06/30/24 10:30 07/01/24 01:32 Ephedrine Sulfate (ePHEDrine SULFATE) 10 mg [id number] PRN IV Systolic BP <90; Call Provider 06/30/24 12:45 07/01/24 12:44 Ketorolac Tromethamine (Toradol Injection) 30 mg Q6HP PRN IV MODERATE PAIN (4-6 PAIN SCALE) 06/30/24 10:30 07/05/24 10:29 Morphine Sulfate 2 mg Q4HP PRN IV SEVERE PAIN (7-10 PAIN SCALE) 06/30/24 12:45 Ondansetron HCl (Zofran) 4 mg Q4HP PRN IV NAUSEA / VOMITING 06/30/24 10:30 Hold Ondansetron HCl (Zofran) 4 mg Q4HP PRN IV NAUSEA / VOMITING 06/30/24 12:45 General: Normal Lungs: Normal Cardiovascular: Normal Abdominal: Soft Extremities: Normal Studies Laboratory Tests 07/01/24 04:12 06/29/24 21:54 Test 06/29/24 21:54 Range/Units Serum Glucose 97 74-106 mg/dL Ass/Plan Assessment s/p rcs Plan supportive care SOHAIL CAN DO Jul 01, 2024 07:19
[2024-07-01] MEDS ORDERED: HYDROcodone-ACET 5/325MG TAB PO PRN ×2 (09:30)
[2024-07-01] MEDS: DOCUSATE SOD 100 MG CAP PO SCH (13:44)
[2024-07-01] MEDS: SIMETHICONE 80 MG CHEWABLE TABLET PO SCH (13:45)
[2024-07-01] MEDS: DOCUSATE CALCIUM 240 MG CAP PO SCH (13:45)
[2024-07-01] MEDS: IBUPROFEN 800 MG TAB PO PRN (18:53)
[2024-07-02 02:55] VITALS: BP 124/59; PULSE 79; RESP 18; TEMP 98.1; O2SAT 100
--- NOTE | 2024-07-02 05:13 | DVHPN2 ---
Progress Note Date Seen: Jul 02, 2024 Subjective POD#2 s/p repeat C/S Doing well. Pain controlled. Lochia mild. Ambulating well, + Flatus vital signs Vital Sign Date Time Temp Pulse Resp B/P (MAP) Pulse Ox O2 Delivery O2 Flow Rate FiO2 07/02/24 02:55 98.1 79 18 124/59 (80) 100 98.1 07/01/24 19:00 Room Air 06/30/24 10:14 0 Total Intake and Output 07/01/24 07/01/24 07/02/24 15:00 23:00 07:00 Output Total 600 ml Balance -600 ml medications Current Medications Medications Dose Ordered Sig/Penny Route Start Time Stop Time Status Last Admin Dose Admin Lactated Ringer's 1,000 ml @ 125 mls/hr Q8H IV 06/29/24 22:15 06/30/24 16:31 125 MLS/HR Docusate Calcium 240 mg DAILY PO 07/01/24 10:00 07/01/24 13:45 240 MG Docusate Sodium 100 mg Q12HR PO 07/01/24 10:00 07/01/24 21:52 100 MG Dimethicone 80 mg QID PO 07/01/24 12:00 07/01/24 21:52 80 MG Ibuprofen 800 mg Q8HP PRN PO 07/01/24 09:30 07/02/24 02:40 800 MG Acetaminophen/ Hydrocodone Bitart 1 tab Q4HPRN PRN PO 07/01/24 09:30 Acetaminophen/ Hydrocodone Bitart 2 tab Q4HPRN PRN PO 07/01/24 09:30 laboratory and microbiology Laboratory Tests 07/01/24 04:12 06/29/24 21:54 Test 06/29/24 21:54 Range/Units Serum Glucose 97 74-106 mg/dL Objective O: AFVSS Chest: heart and lung sounds normal. Abd soft, non-tender, fundus firm, BS, no rebound or guarding, Incision - dressing and incision clean, dry, intact Ext Neg Homans, Non-tender, edema Lochia - minimal Labs reviewed Assessment/Plan POD#1 s/p repeat C/S, doing well Continue current care D/C planning F/U in 1 week in office w/ Dr. Garcia Plan discussed with: Patient MATILDA GARCIA DO Jul 02, 2024 05:13
--- NOTE | 2024-07-02 05:14 | DVHDS2 ---
Physician Discharge Progress N Final Diagnosis: Term delivered, Prior c/section s/p repeat C/S Operations or Procedures: Operations or Procedures Repeat C/S Commentary: Commentary Uneventful post op course Condition on Discharge: Stable Disposition: Home Discharge Instructions: Diet: Regular Activity: Light activity Follow Up/Referral: [address] Garcia Medications: Altha 5mg, Ibuprofen Rx Follow Up Care: Discharge Statement: "Patient was advised to return to the ER or call 911 if any headaches, dizziness, shortness of breath, chest pain, abdominal pain, bleeding, fevers, or worsening of medical condition. Patient was counseled about treatment plan, medications, possible side effects, patientverbalized understanding. All questions were answered to the best of my ability. This discharge took greater then 30 minutes in planning, reviewing documentation, counseling the patient, and discussing with other team members." MATILDA GARCIA DO Jul 02, 2024 05:14
[2024-07-02 07:10] VITALS: BP 111/65; PULSE 70; RESP 16; TEMP 98.2; O2SAT 97
== END 2024-07-02 10:00 | disposition home or self-care (01) | DRG 787 ==
LOC: LDRP 20:18 → UNDOADMOB 20:18 → LDRP 20:19 → OBSVTOIN 06-30 07:00 → LDRP 06-30 07:00 → OBSVTOIN 06-30 07:19 → INTOOBSV 06-30 07:19
PROVIDERS: ADMIT Obstetrics & Gynecology; ATTEND Obstetrics & Gynecology
PROC: 10D00Z1 Extraction of Products of Conception, Low, Open Approach (ICD-10-PCS; principal; 2024-06-30 09:03)
DX: O34.211 Maternal care for low transverse scar from previous cesarean delivery (principal); O41.03X0 Oligohydramnios, third trimester, not applicable or unspecified; Z37.0 Single live birth; Z3A.37 37 weeks gestation of pregnancy; O76 Abnormality in fetal heart rate and rhythm complicating labor and delivery
CPT/HCPCS: 36415; 59025; 76818; 80053; 80307; 81001; 81002; 85025; 85610; 85730; 86850; 86900; 86901; 94760; 94762; 96360; 96361; 96372; G0378; J0131; J2250; J2405; J2590

== ENCOUNTER 2025-03-06 17:14 | Emergency (ER) | payer BC, OTHER ==
[~2025-03-06] VITALS: Ht 152.4 cm; Wt 64.8 kg
[~2025-03-06 17:14] MED LIST changes: +HYDR-4902 PO; +IBUP1TAB5 PO; -METR-344 PO; -NIFE10CA52 PO; -TAMIFLU PO
--- NOTE | 2025-03-06 18:30 | ED.PDOC ---
TIMBER HARVESTER OPERATOR HPI Comments 29-year-old female who came to ER for vaginal bleeding. Patient is , she has irregular menstrual cycles, so she is unsure with a gestational age of the baby. She tested positive for a week ago via home kit. Yesterday patient started having vaginal bleeding, with periumbilical abdominal pain. No fever noted Chief Complaint: Vaginal Bleed Time Seen by MD: 18:30 Reviewed Notes: Nurses Notes Allergies: Coded Allergies: NO KNOWN ALLERGIES (Unverified , 02/08/19) Home Meds Active Scripts Ibuprofen Micronized (Ibuprofen) 600 Mg Tab, 600 MG PO Q8HPRN PRN, #30 TAB Prov:JOSEMATILDA Vicente DO 06/30/24 Hydrocodone-Acetaminophen (Hydrocodone Bitartrate/AC 5-325 mg) 1 Tab Tab, 1 TAB PO Q6HPRN PRN for 5 Days, #20 TAB Prov:MATILDA GARCIA Jules DO 06/30/24 Reported Medications Vit W/ Ferrous Fumara (PNV PLUS MULTIVI) Plus Tab, 1 OR, TAB 06/06/24 Information Source: Patient Mode of Arrival: Ambulatory Timing: Hours Prehospital treatment: None Severity: Moderate Vaginal Discharge: None Bleeding Quality: Bright Red Vaginal Mass: None Sexual Activity: Last Consensual [place]: Unknown Associated Signs and Symptoms: Vaginal Bleeding, Abdominal Pain Past Medical History PAST MEDICAL HISTORY: Denies Surgical History: Denies all surgeries REALTIME COURT REPORTER History: No Pertinent REALTIME COURT REPORTER History 3 Para 2 Family History Family History: Reviewed,noncontributory to illness, Family hx of HTN Social History Smoker: Non-Smoker Alcohol: Denies ETOH Use Drugs: Denies Drug Use Lives In: Home Constitutional: denies: chills, diaphoresis, fatigue, fever, malaise, sweats, weakness, others EENTM: denies: blurred vision, double vision, ear bleeding, ear discharge, ear drainage, ear pain, ear ringing, eye pain, eye redness, hearing loss, mouth pain, mouth swelling, nasal discharge, nose bleeding, nose congestion, nose pain, photophobia, tearing, throat pain, throat swelling, voice changes, others Respiratory: denies: cough, hemoptysis, orthopnea, SOB at rest, shortness of breath, SOB with excertion, stridor, wheezing, others Cardiovascular: denies: chest pain, dizzy spells, diaphoresis, Dyspnea on exertion, edema, irregular heart beat, left arm pain, lightheadedness, palpitations, PND, syncope, others Gastrointestinal: reports: abdominal pain; denies: abdomen distended, blood streaked bowels, constipated, diarrhea, dysphagia, difficulty swallowing, hematemesis, melena, nausea, poor appetite, poor fluid intake, rectal bleeding, rectal pain, vomiting, others Genitourinary: reports: abnormal vagina bleeding; denies: burning, dyspareunia, dysuria, flank pain, frequency, hematuria, incontinence, pain, , vagina discharge, urgency, others Neurological: denies: dizziness, fainting, headache, left sided numbness, left sided weakness, numbness, paresthesia, pre-existing deficit, right sided numbness, right sided weakness, seizure, speech problems, tingling, tremors, we akness, others Musculoskeletal: denies: back pain, gout, joint pain, joint swelling, muscle pain, muscle stiffness, neck pain, others Integumetry: denies: bruises, change in color, change in hair/nails, dryness, laceration, lesions, lumps, rash, wounds, others Allergic/Immunocompromised: denies: Difficulty Healing, Frequent Infections, Hives, Itching, others Hematologic/Lymphatic: denies: anemia, blood clots, easy bleeding, easy bruising, swollen glands, others Endocrine: denies: excessive hunger, excessive sweating, excessive thirst, excessive urination, flushing, intolerance to cold, intolerance to heat, unexplained weight gain, unexplained weight loss, others Psychiatric: denies: anxiety, bipolar disorder, depression, hopeless, panic disorder, schizophrenia, sleepless, suicidal, others Physical Exam General Appearance: No Apparent Distress, Normal HEENT: Normal ENT Inspection, Pharynx Normal, TMs Normal Neck: Full Range of Motion, Non-Tender, Normal, Normal Inspection Respiratory: Chest Non-Tender, Lungs Clear, No Accessory Muscle Use, No Respiratory Distress, Normal Breath Sounds Cardiovascular: No Edema, No JVD, No Murmur, No Gallop, Normal Peripheral Pulses, Regular Rate/Rhythm Breast Exam: Deferred Gastrointestinal: No Organomegaly, Non Tender, No Pulsatile Mass, Normal Bowel Sounds, Soft Genitalia: Deferred Pelvic: Deferred Rectal: Deferred Extremities: No calf tenderness, Normal capillary refill, Normal inspection, Normal range of motion, Non-tender, No pedal edema Musculoskeletal : Apperance: Normal Neurologic: Alert, charter boat captain II-XII nml as Tested, No Motor Deficits, Normal Affect, Normal Mood, No Sensory Deficits Cerebellar Function: Normal Reflexes: Normal Skin: Dry, Normal Color, Warm Lymphatic: No Adenopathy Was a procedure done? Was a procedure done?: No Differential Diagnosis (REALTIME COURT REPORTER) Vaginal Bleeding: - Missed, - Threatened, Ectopic , Menstrual Bleeding, UTI X-Ray, Labs, Meds, VS Vital Signs Date Time Temp Pulse Resp B/P (MAP) Pulse Ox O2 Delivery O2 Flow Rate FiO2 03/06/25 22:35 98.2 86 16 121/72 (88) 100 98.2 03/06/25 22:35 86 16 100 Room Air 03/06/25 17:15 98.4 83 18 119/73 100 98.4 Lab Test 03/06/25 19:30 03/06/25 18:40 Range/Units Urine Color Yellow Yellow Urine Clarity Clear Clear Urine pH 5.5 5.0-9.0 Urine Specific [place] 1.035 1.001-1.035 Urine Protein Negative Negative Urine Ketones Negative Negative Urine Blood Negative Negative /uL Urine Nitrite Negative Negative Urine Bilirubin Negative Negative Urine Urobilinogen Normal Negative mg/dL Urine Leukocyte Esterase Negative Negative /uL Urine RBC 1 0 - 4 /hpf Urine Microscopic WBC 1 0-5 /HPF Urine Squamous Epithelial Cells Few <5 /hpf Urine Bacteria None seen None Seen /hpf Urine Mucus Few None Seen Urine Glucose Normal Normal mg/dL White Blood Count 5.2 4.4-10.8 10^3/uL Red Blood Count 4.27 4.0-5.20 10^6/uL Hemoglobin 12.4 12.2-16.2 g/dL Hematocrit 36.7 36.0-46.0 % Mean Corpuscular Volume 85.9 80.0-100.0 fL Mean Corpuscular Hemoglobin 29.0 28.0-32.0 pg Mean Corpuscular Hemoglobin Concent 33.8 32.0-36.0 g/dL Red Cell Distribution Width 13.8 11.8-14.3 % Platelet Count 319 140-450 10^3/uL Mean Platelet Volume 7.0 6.9-10.8 fL Neutrophils (%) (Auto) 64.4 37.0-80.0 % Lymphocytes (%) (Auto) 28.4 10.0-50.0 % Monocytes (%) (Auto) 5.6 0.0-12.0 % Eosinophils (%) (Auto) 1.3 0.0-7.0 % Basophils (%) (Auto) 0.3 0.0-2.0 % Neutrophils # (Auto) 3.3 1.6-8.6 10 ^3/uL Lymphocytes # (Auto) 1.5 0.4-5.4 10 ^3/uL Monocytes # (Auto) 0.3 0-1.3 10 ^3/uL Eosinophils # (Auto) 0.1 0-0.8 10 ^3/uL Basophils # (Auto) 0 0-0.2 10 ^3/uL Nucleated Red Blood Cells 0.1 % Sodium Level 141 136-145 mmol/L Potassium Level 4.3 3.5-5.1 mmol/L Chloride Level 105 98-107 mmol/L Carbon Dioxide Level 26 20-31 mmol/L Anion Gap 10 5-15 Blood Urea Nitrogen 17 9-23 mg/dL Creatinine 0.82 0.550-1.02 mg/dL Glomerular Filtration Rate Calc 99 >90 mL/min BUN/Creatinine Ratio 20.7 H 10.0-20.0 Serum Glucose 111 H 74-106 mg/dL Calcium Level 9.7 8.7-10.4 mg/dL Total Bilirubin 0.2 0.2-1.0 mg/dL Aspartate Amino Transferase (AST) 13 13-40 U/L Alanine Aminotransferase (ALT) 12 7-40 U/L Alkaline Phosphatase 76 46-116 U/L Total Protein 7.1 5.7-8.2 g/dL Albumin 4.6 3.2-4.8 g/dL Beta HCG, Quantitative 44171.9 H 1.5-4.2 mIU/mL Time of 1ST Reevaluation: 18:27 Reevaluation 1ST: Unchanged Patient Education/Counseling: Diagnosis, Treatment Family Education/Counseling: No Family Present Departure 1 Departure Time of Disposition: 20:30 Impression: Primary Impression: Threatened miscarriage in early Disposition: 01 HOME / SELF CARE / HOMELESS Condition: Stable Discharged With: Self Critical Care Note Critical Care Time?: No Stability Stability form required: No Heart Score Heart Score: Heart Score Response (Comments) Value History N/A 0 EKG N/A 0 Age N/A 0 Risk Factors N/A 0 Troponin N/A 0 Total 0 I personally scribed for JOCELYN VELA MD ([email or web address]) on 03/06/25 at 18:30. Electronically submitted by Avi Vieira ([email or web address]). JOCELYN VELA MD Mar 06, 2025 18:30
[2025-03-06 18:55] LABS: Hematocrit 36.7 % (36.0-46.0); Hemoglobin 12.4 g/dL (12.2-16.2); Mean Corpuscular Hemoglobin 29.0 pg (28.0-32.0); Mean Corpuscular Volume 85.9 fL (80.0-100.0); Nucleated Red Blood Cells % 0.1 %
[2025-03-06 19:05] LABS: Alanine Aminotransferase 12 U/L (7-40); Albumin 4.6 g/dL (3.2-4.8); Alkaline Phosphatase 76 U/L (46-116); Anion Gap 10 (5-15); BUN/Creatinine Ratio 20.7 (10.0-20.0); Blood Urea Nitrogen 17 mg/dL (9-23); Calcium 9.7 mg/dL (8.7-10.4); Carbon Dioxide 26 mmol/L (20-31); Chloride 105 mmol/L (98-107); Potassium 4.3 mmol/L (3.5-5.1); Sodium 141 mmol/L (136-145); Total Protein 7.1 g/dL (5.7-8.2)
[2025-03-06 19:07] LABS: Bilirubin, Total 0.2 mg/dL (0.2-1.0); Glucose 111 mg/dL (74-106)
[2025-03-06 20:16] LABS: Urine Protein, UAD Negative (Negative)
--- NOTE | 2025-03-06 21:04 | DVH ---
Procedure: US OB ULTRASOUND COMP LESS 14WKS Study Date and Requested Time: 03/06/2025 07:56 PM Study Description: US OB ULTRASOUND COMP LESS 14WKS History: vag bleed, abd pain Comparison: US OB ULTRASOUND COMP LESS 14WKS on DOS: 12/01/23 Technique: Multiple high resolution harris-scale images obtained of the uterus, fetus, and other gestat ional components with M-mode scanning for evaluation of heart rate. Findings: Single live intrauterine with gestational sac, yolk sac, and fetus visualized. heart rate of 121 bpm. Estimated gestational age 6 weeks/ 3 days based on crown-rump length of 0.57 cm and mean gestational sac diameter of 1.98 cm. Uterus measures 10.1 x 6.1 x 6.6 cm in size. Cervical os appears closed. Right ovary measures 4.2 x 3.7 x 3.7 cm with a 2.7 cm cyst with peripheral vascularity which may repr esent a corpus luteal cyst. Left ovary measures 2.8 x 1.6 x 1.8 cm. Normal ovarian color Doppler flow bilaterally. No evidence of free fluid in the cul-de-sac. Impression: Single live intrauterine with heart rate of 121 bpm. Estimated gestational age 6 week s/ 3 days with estimated date of confinement 10/27/2025.
[2025-03-06 22:35] VITALS: BP 121/72; PULSE 86; RESP 16; TEMP 98.2; O2SAT 100
== END 2025-03-06 22:42 | disposition home or self-care (01) ==
LOC: ER 17:14
DX: O20.0 Threatened abortion (principal); Z3A.01 Less than 8 weeks gestation of pregnancy
CPT/HCPCS: 36415; 76801; 80053; 81001; 84702; 85025; 86901